=== PATIENT | male | born 1980 | race Native Hawaiian/Other Pacific Islander ===

== ENCOUNTER → 2019-04-23 | Outpatient (CLI) | payer OTHER ==
--- NOTE | 2019-04-23 13:36 | XR ---
EXAMINATION TYPE: XR ankle complete LT, XR foot complete LT DATE OF EXAM: 04/23/2019 CLINICAL HISTORY: Left foot and ankle pain after crush injury EXAMINATION TYPE: XR ankle complete LT, XR foot complete LT TECHNIQUE: Frontal, lateral and oblique images of the left ankle and foot are obtained. COMPARISON: None. FINDINGS: There is no acute fracture/dislocation evident in the left ankle. The ankle mortise appea rs within normal limits. Small plantar heel spur is seen. Degenerative change of the dorsal talonavi cular joint is seen as osseous proliferation. Lateral projecting osseous structure in the syndesmosis from the distal tibial diaphysis could represent an osteochondroma or prior posterior maxillary calc ification of the syndesmosis. The overlying soft tissue demonstrates a low ankle mild soft tissue swe lling is no acute fracture or dislocation evident in the left foot. The joint spaces in the left charisse t are preserved. Overlying soft tissue is unremarkable. IMPRESSION: 1. Mild soft tissue swelling of the low ankle joint. No acute fracture or dislocation in the left ank le or foot. 2. Osseous protuberance from the distal diaphysis of the tibia may represent an osteochondroma or genia or posterior maxillary calcification of the syndesmosis.
== END ==
LOC: RADXRMAIN 13:02
PROVIDERS: ATTEND Emergency Medicine
DX: M79.89 Other specified soft tissue disorders (principal)

== ENCOUNTER → 2019-05-08 | Outpatient (CLI) | payer BC, OTHER ==
--- NOTE | 2019-05-08 09:49 | MR ---
Left foot MRI HISTORY: Trauma and pain Multiplanar multisequence imaging through the left foot Correlation to left foot plain film 04/23/2019 There is intermediate signal on T1, increased signal on T2-weighted sequences within the medial aspec t of the ventricular consistent with bone contusion, some local distortion of the trabecular pattern likely indicative of microtrabecular fractures. Some local soft tissue hyperintensity noted on T2-samantha ghted images compatible with local edema medially. No evident dislocation. Over the dorsum of the charisse t there is some subcutaneous edema signal present. Flexor and extensor tendons are intact. Peroneal l ongus and brevis tendons, plantar aponeurosis, Achilles tendon are intact. Some fluid signal present along the staple erroneous tendons may be indicative of tenosynovitis. Articular cartilage signal is maintained. Some linear low signal present within the distal aspect of the tibia anteriorly is indete rminate, possibly related to prior instrumentation, correlate for appropriate surgical history. No ev ident ligamentous disruption. Sinus Tarsi thought to be normal. IMPRESSION: Bone contusion with probable microtrabecular fractures at the medial navicular. Soft tiss ue injury. Evidence of prior instrumentation suspected, correlate with appropriate surgical history.
== END | disposition home or self-care (01) ==
LOC: RADMRIMAIN 08:00
PROVIDERS: ATTEND Emergency Medicine
DX: S97.82XD Crushing injury of left foot, subsequent encounter (principal)

== ENCOUNTER 2020-07-09 08:55 | Emergency (ER) | payer BC, OTHER ==
[2020-07-09 09:05] VITALS: RESP 18
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
--- NOTE | 2020-07-09 10:10 | XR ---
EXAMINATION TYPE: XR lumbar spine 2 or 3V DATE OF EXAM: 07/09/2020 COMPARISON: 04/27/2017 HISTORY: Pain TECHNIQUE: Three-view thoracic spine FINDINGS: Disc heights are preserved. Vertebral body heights are preserved. Alignment is normal. Ther e 5 lumbar-type vertebral bodies. The pedicles are intact. IMPRESSION: 1. Normal 5 view lumbar spine
[2020-07-09 10:51] VITALS: BP 136/78; PULSE 90; TEMP 98
== END 2020-07-09 10:43 | disposition home or self-care (01) ==
LOC: EC 08:55
DX: S09.90XA Unspecified injury of head, initial encounter (principal); M54.2 Cervicalgia; M54.5 Low back pain; J45.909 Unspecified asthma, uncomplicated; Z91.048 Other nonmedicinal substance allergy status; Z91.040 Latex allergy status; Z88.5 Allergy status to narcotic agent; Z87.891 Personal history of nicotine dependence; W19.XXXA Unspecified fall, initial encounter; Y92.69 Other specified industrial and construction area as the place of occurrence of the external cause; Y99.0 Civilian activity done for income or pay
CPT/HCPCS: 70450; 72100; 72125; 99284

== ENCOUNTER → 2020-07-10 | Outpatient (CLI) | payer OTHER ==
--- NOTE | 2020-07-10 12:39 | XR ---
EXAMINATION TYPE: XR shoulder complete RT DATE OF EXAM: 07/10/2020 CLINICAL HISTORY: Fall injury with pain. TECHNIQUE: Three views of the right shoulder are obtained. COMPARISON: None. FINDINGS: There is no acute fracture/dislocation evident in the right shoulder. The acromioclavicul ar and glenohumeral joint spaces appear within normal limits. The visualized ribs are intact and unr emarkable. IMPRESSION: There is no acute fracture or dislocation in the right shoulder.
--- NOTE | 2020-07-10 12:42 | XR ---
EXAMINATION TYPE: XR knee complete RT DATE OF EXAM: 07/10/2020 CLINICAL HISTORY: Fall injury with pain. TECHNIQUE: Three views of the right knee are obtained. COMPARISON: Right knee x-ray April 16, 2014 FINDINGS: There is no acute fracture/dislocation evident in right knee. Stable mild joint space loss medial tibiofemoral compartment. The overlying soft tissue appears unremarkable. IMPRESSION: There is no acute fracture or dislocation in the right knee. No significant change from prior.
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
== END | disposition home or self-care (01) ==
LOC: RADXRMAIN 11:49
PROVIDERS: ATTEND Emergency Medicine
DX: S23.3XXA Sprain of ligaments of thoracic spine, initial encounter (principal); S40.011A Contusion of right shoulder, initial encounter; S80.01XA Contusion of right knee, initial encounter; S20.20XA Contusion of thorax, unspecified, initial encounter
CPT/HCPCS: 71046; 72072

== ENCOUNTER → 2021-01-15 | Outpatient (CLI) | payer OTHER ==
--- NOTE | 2021-01-15 13:06 | US ---
EXAMINATION TYPE: US liver DATE OF EXAM: 01/15/2021 COMPARISON: NONE CLINICAL HISTORY: R94.5 ABN LIVER FUNCTIONS. Difficult and limited exam due to patient body habitus EXAM MEASUREMENTS: Liver Length: 16.4 cm Gallbladder Wall: 0.2 cm CBD: 0.5 cm Right Kidney: 10.1 x 5.7 x 5.0 cm Pancreas: Obscured by bowel gas Liver: Limited visualization. Visualized portions are attenuating, coarse. Probably fatty infiltrati on Gallbladder: wnl Evidence for sonographic Andino's sign: No CBD: wnl as visualized Right Kidney: No hydronephrosis or masses seen IMPRESSION: Heterogeneous, echogenic liver with poor penetration is most likely due to hepatic steatosis. Please correlate clinically.
== END | disposition home or self-care (01) ==
LOC: RADUSWWP 12:33
PROVIDERS: ATTEND Internal Medicine
DX: K76.0 Fatty (change of) liver, not elsewhere classified (principal); R94.5 Abnormal results of liver function studies
CPT/HCPCS: 76705

== ENCOUNTER → 2021-05-25 | Outpatient (CLI) | payer OTHER ==
[2021-05-25 15:35] LABS: Basophils % (A) 1 %; Eosinophils # (A) 0.3 k/uL (0-0.7); Eosinophils % (A) 4 %; HCT 49.7 % (39.0-53.0); HGB 16.5 gm/dL (13.0-17.5); Lymphocytes % (A) 35 %; MCH 29.4 pg (25.0-35.0); MCHC 33.2 g/dL (31.0-37.0); MCV 88.5 fL (80.0-100.0); Mean Platelet Volume 7.7; Monocytes # (A) 0.4 k/uL (0-1.0); Monocytes % (A) 5 %; Neutrophils # (A) 4.6 k/uL (1.3-7.7); Neutrophils % (A) 54 %; Platelet Count 272 k/uL (150-450); RBC 5.61 m/uL (4.30-5.90); RDW 13.5 % (11.5-15.5); WBC 8.6 k/uL (3.8-10.6)
== END | disposition home or self-care (01) ==
LOC: LABPAT 14:22
PROVIDERS: ATTEND Surgery
DX: Z01.812 Encounter for preprocedural laboratory examination (principal); K42.9 Umbilical hernia without obstruction or gangrene
CPT/HCPCS: 36415; 85025

== ENCOUNTER 2021-06-01 07:36 | Day surgery (SDC) | payer OTHER ==
[2021-05-25 11:57] VITALS: BMI 52.4
[~2021-06-01 07:36] MED LIST: ACETAMINOPHEN TAB 500 MG TAB PO PRN; DEXAMETHASONE SOD PHOSPHATE 4 MG/ML 1 ML VIAL IV ONE; HEPARIN SODIUM,PORCINE/PF 5,000 UNIT/0.5 ML SYRINGE SQ PRN; LACTATED RINGERS 1,000 ML IV SCH; ONDANSETRON 4 MG/2 ML VIAL IVP ONE; ceFAZolin 3 GM in SODIUM CHLORIDE 0.9% 100 ML IVPB PRN
[2021-06-01] MEDS ORDERED: ACETAMINOPHEN TAB 500 MG TAB ONE (08:22)
[2021-06-01] MEDS ORDERED: HEPARIN SODIUM,PORCINE/PF 5,000 UNIT/0.5 ML SYRINGE SQ ONE (08:22)
[2021-06-01 08:23] LABS: Glucose,Whole Blood 189 mg/dL (75-99)
--- NOTE | 2021-06-01 09:11 | P.GSHP ---
History of Present Illness H&P Date: 06/01/21 Chief Complaint: Umbilical hernia This a 41-year-old male who presents today for laparoscopic robotic-assisted repair of umbilical hernia. Patient developed a tender mass at his umbilicus. Past Medical History Past Medical History: Asthma, Diabetes Mellitus, Sleep Apnea/CPAP/BIPAP Additional Past Medical History / Comment(s): gout, not using cpap, NIDDM type 2, umbilical hernia, sl edema BLE History of Any Multi-Drug Resistant Organisms: None Reported Past Surgical History: Orthopedic Surgery Additional Past Surgical History / Comment(s): head, right arm rotator cuff, ORIF left ankle Past Anesthesia/Blood Transfusion Reactions: No Reported Reaction Additional Past Anesthesia/Blood Transfusion Reaction / Comment(s): adopted, no known family hx Smoking Status: Former smoker - Past Family History Mother Family Medical History: Unable to Obtain Additional Family Medical History / Comment(s): patient adopted Medications and Allergies Home Medications Medication Instructions Recorded Confirmed Type Mometasone/Formoterol [Dulera 100 2 puff INHALATION RT-DAILY PRN 04/27/17 06/01/21 History Mcg/5 Mcg Inhaler] Clr (Diet Pill) 1 tab PO HS 05/25/21 History Ibuprofen 600 mg PO TID PRN 05/25/21 05/25/21 History Melatonin [Melatonin Chew] 1 mg PO HS 05/25/21 06/01/21 History Multivitamin [Multivitamins Adult 1 each PO HS 05/25/21 05/25/21 History Gummies] Potassium Chloride [K-Tab ER] 10 meq PO HS 05/25/21 06/01/21 History Allergies Allergy/AdvReac Type Severity Reaction Status Date / Time iodine Allergy Rash/Hives Verified 05/25/21 11:30 Latex, Natural Rubber Allergy Rash/Hives Verified 05/25/21 11:30 morphine Allergy Rash/Hives Verified 06/01/21 07:57 Surgical - Exam Vital Signs Temp Pulse Resp BP Pulse Ox 96.5 F L 63 20 141/84 99 06/01/21 08:01 06/01/21 08:01 06/01/21 08:01 06/01/21 08:01 06/01/21 08:01 - General well developed, well nourished, no distress - Eyes PERRL - ENT normal pinna - Neck no masses - Respiratory normal expansion - Cardiovascular Rhythm: regular - Abdomen Abdomen: soft, non tender Hernia: umbilical (2 cm) Results - Labs Abnormal Lab Results - Last 24 Hours (Table) 06/01/21 Range/Units 08:12 POC Glucose (mg/dL) 189 H (75-99) mg/dL Assessment and Plan Assessment: Umbilical hernia. We'll perform laparoscopic robotic-assisted repair.
[2021-06-01] MEDS ORDERED: KETAMINE 10 MG/ML 20 ML VIAL ONE (09:18)
[2021-06-01] MEDS ORDERED: fentaNYL (PF) 50 MCG/ML 2 ML AMP ONE (09:18)
[2021-06-01] MEDS ORDERED: NEOSTIGMINE 1 MG/ML 10 ML VIAL ONE (09:18)
[2021-06-01] MEDS ORDERED: GLYCOPYRROLATE 0.2 MG/ML 2 ML VIAL ONE (09:18)
[2021-06-01] MEDS ORDERED: PROPOFOL 10 MG/ML 20 ML VIAL IV ONE (09:18)
[2021-06-01] MEDS ORDERED: LIDOCAINE 1% INJ 10MG/ML (20 ML MDV) ONE (09:18)
[2021-06-01] MEDS ORDERED: ROCURONIUM 10 MG/ML (5 ML VIAL) IV ONE (09:18)
[2021-06-01] MEDS ORDERED: MIDAZOLAM 2 MG/2 ML VIAL ONE (09:18)
[2021-06-01] MEDS ORDERED: SUCCINYLCHOLINE CHLORIDE VIAL 200 MG/10 ML VIAL IV ONE (09:18)
[2021-06-01] MEDS ORDERED: BUPIVACAIN-EPI 0.25%-1:200,000 30 ML VIAL SQ ONE ×2 (09:36→09:46)
--- NOTE | 2021-06-01 10:34 | P.OP ---
Date of Procedure: 06/01/21 Preoperative Diagnosis: Incarcerated umbilical hernia Postoperative Diagnosis: Incarcerated umbilical hernia Procedure(s) Performed: Laparoscopic robotic system repair of incarcerated ventral hernia Partial omentectomy Transversus abdominal plain block Anesthesia: TONIA Surgeon: Jossue Wilder Estimated Blood Loss (ml): 5 Pathology: other (Omentum) Condition: stable Disposition: PACU Description of Procedure: The patient was placed on the operating table in the supine position. He received general anesthesia. His abdomen was prepped and draped usual fashion. Using a 5 mm optical trocar under direct visualization the peritoneal cavity was entered in the left upper quadrant. The abdomen was then insufflated. The laparoscope was placed back into the perineal cavity. Next a 8 mm robotic trocar was placed in the left lower quadrant and a 12 mm robotic trocar was placed in the left lateral position. The original 5 mm trocar was exchanged for a 8 mm robotic trocar. The patient's placed in the left side up position. And the patient was docked to the robot. A tap block was performed in 4 quadrants using 1% local Xylocaine The umbilical hernia was visualized. Using hook cautery the peritoneum over the umbilical hernia was excised. The incarcerated omentum was dissected free and sent to pathology. The fascial opening was repaired using 0V LOC suture. Next a piece of 11 cm round ventral light ST mesh was placed into the. Cavity and secured with 2 OV lock suture. The patient was undocked the robot. The needles were retrieved. The fascia of the 12 mm trocar site was closed with 0 Ethibond suture. Skin was closed interrupted 3-0 Monocryl suture. Dermabond dressings was applied. Patient top procedure well and was sent to recovery room stable condition.
[2021-06-01 10:49] VITALS: TEMP 96.8
[2021-06-01] MEDS: HYDROmorphone 0.5 MG/0.5 ML SYRINGE IVP PRN ×4 (10:52→11:09)
[2021-06-01 11:19] LABS: Glucose,Whole Blood 141 mg/dL (75-99)
[2021-06-01] MEDS ORDERED: LACTATED RINGERS 1,000 ML IV ONE (11:33)
[2021-06-01 13:20] VITALS: BP 135/92; PULSE 84; RESP 16
== END 2021-06-01 14:25 | disposition home or self-care (01) ==
LOC: OR 07:36
PROVIDERS: ATTEND Surgery
DX: K42.0 Umbilical hernia with obstruction, without gangrene (principal)
CPT/HCPCS: 49653; C1781; J0690; J2405; J1170; J1644; 88305